=== PATIENT | female | born 1985 | race Caucasian/White ===

== ENCOUNTER 2017-03-04 23:13 | Emergency (ER) | payer BC ==
[2017-03-04] MEDS ORDERED: LORazepam 2 MG/ML SDV IVPUSH ONE (23:18)
[2017-03-04] MEDS ORDERED: Ondansetron 4 MG/2 ML SDV IVPUSH ONE (23:18)
[2017-03-04] MEDS ORDERED: HYDROmorphone 0.5 MG/0.5 ML Syringe IVPUSH ONE (23:18)
--- NOTE | 2017-03-04 23:26 | EDM.PDOC ---
ED HPI GENERAL MEDICAL PROBLEM - General Chief Complaint: Headache Stated Complaint: AMBULANCE Time Seen by Provider: 03/04/17 23:18 Source of Information: Reports: Patient, Family History Limitations: Reports: No Limitations - History of Present Illness INITIAL COMMENTS - FREE TEXT/NARRATIVE: This is a 31-year-old female. Tonight around 9 PM she said she had sudden onset of headache. It seems to be in her temples and in the back of her head and into her neck slightly. The who is a deputy sheriff k9 handler here apparently Center a text message about that time and when he received a text message back it was just gibberish. When he went home he found her on the floor complaining of this pounding headache and she stated that the vision was more like she will looking into a bright light. During this time she had some shaking and at times her limbs seem to be rigid but then she could move them the states she was sort of in and out of being lucid that time she could talk and other times it seemed she couldn't find her words. When she arrived in the ER she was able to answer questions though she was continually jerking in the upper body and her extremities. She states she sees double when she looks at my eyes. He complains of headache pounding in her temples and in the back of her head. She denies any neck tenderness however and she is able to move her neck. She appears to move all 4 extremities on command and there is no airway compromise noted. The patient has no history of headaches and non-that have ever been anything like this one. 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 Apparently the bathroom that she was in when she closed the door to take a shower had the smell of the gas according to the . If you look at the symptoms caused by methane exposure they include headache dizziness or loss of coordination fatigue and emotional upset trouble breathing nausea and unable to move. I believe her symptoms are related to the methane exposure. Headache Pain Score (Numeric/FACES): 10 - Related Data Allergies Allergy/AdvReac Type Severity Reaction Status Date / Time No Known Allergies Allergy Verified 03/04/17 23:22 Home Meds: Home Meds Dextroamphetamine/Amphetamine [Adderall 10 mg Tablet] 10 mg PO ASDIRECTED [History] Hydrocodone/Acetaminophen [Hydrocodon-Acetaminophen 5-325] 1 each PO Q6H PRN # 10 tablet 03/05/17 [Rx] Meclizine [Antivert] 25 mg PO Q6H PRN #10 tablet 03/05/17 [Rx] ED ROS GENERAL - Review of Systems Review Of Systems: See Below Constitutional: Denies: Fever, Chills HEENT: Reports: No Symptoms Respiratory: Denies: Shortness of Breath, Wheezing Cardiovascular: Reports: No Symptoms Endocrine: Reports: No Symptoms GI/Abdominal: Denies: Nausea, Vomiting : Reports: No Symptoms Musculoskeletal: Reports: No Symptoms Skin: Reports: No Symptoms Neurological: Reports: Confusion, Trouble Speaking Psychiatric: Reports: Anxiety, Confusion Hematologic/Lymphatic: Reports: No Symptoms - Physical Exam Exam: See Below Exam Limited By: Altered Mental Status General Appearance: Alert, WD/WN, Moderate Distress Eye Exam: Bilateral Eye: Other Ears: Normal External Exam, Normal Canal, Normal TMs Nose: Normal Inspection Throat/Mouth: Normal Inspection, Normal Oropharynx, No Airway Compromise Head Exam: Normocephalic, Other (No scap tenderness noted by the patient) Neck: Supple, Other (Minimal tenderness noted at the base of the skull but moves without difficulty.) Respiratory/Chest: No Respiratory Distress, Lungs Clear, Normal Breath Sounds Cardiovascular: Regular Rate, Rhythm, No Murmur, Tachycardia GI/Abdominal: Soft, Non-Tender. No: Guarding, Rigid Neuro Exam (Abbreviated): Alert, Oriented, Slow to Respond Back Exam: Normal Inspection Extremities: Normal Inspection, Normal Range of Motion, Other (Patient sits there and kind of jerks a little bit with her upper or lower extremities but when asked to squeeze my hand or to lift her arm she is able to do that without difficulty she can raise her legs without difficulty) Psychiatric: Anxious Skin Exam: Warm, Dry Course - Vital Signs Last Recorded V/S: Last Vital Signs Temp 98.4 F 03/04/17 23:14 Pulse 72 03/04/17 23:14 Resp 15 03/04/17 23:14 BP 112/78 03/04/17 23:14 Pulse Ox 98 03/04/17 23:14 - Orders/Labs/Meds Orders: Active Orders 24 hr Category Date Time Status Head wo Cont [CT] Stat Exams 03/04/17 23:19 Taken Labs: Laboratory Tests 03/04/17 03/04/17 03/04/17 Range/Units 23:10 23:10 23:10 WBC 7.38 (3.98-10.04) K/mm3 RBC 4.14 (3.98-5.22) M/mm3 Hgb 12.9 (11.2-15.7) gm/L Hct 37.5 (34.1-44.9) % MCV 90.6 (79.4-94.8) fl MCH 31.2 (25.6-32.2) pg MCHC 34.4 (32.2-35.5) g/dl RDW Std Deviation 39.6 (36.4-46.3) fL Plt Count 362 (182-369) K/mm3 MPV 9.8 (9.4-12.3) fl Neut % (Auto) 59.5 (34.0-71.1) % Lymph % (Auto) 31.6 (19.3-51.7) % Bay % (Auto) 7.2 (4.7-12.5) % Eos % (Auto) 1.6 (0.7-5.8) Baso % (Auto) 0.1 (0.1-1.2) % Neut # (Auto) 4.39 (1.56-6.13) K/mm3 Lymph # (Auto) 2.33 (1.18-3.74) K/mm3 Bay # (Auto) 0.53 H (0.24-0.36) K/mm3 Eos # (Auto) 0.12 (0.04-0.36) K/mm3 Baso # (Auto) 0.01 (0.01-0.08) K/mm3 Sodium 139 (136-145) mEq/L Potassium 3.7 (3.5-5.1) mEq/L Chloride 106 (98-107) mEq/L Carbon Dioxide 26 (21-32) mEq/L Anion Gap 10.7 (5-15) BUN 13 (7-18) mg/dL Creatinine 0.9 (0.55-1.02) mg/dL Est Cr Clr Drug Dosing 82.13 mL/min Estimated GFR (MDRD) > 60 (>60) mL/min BUN/Creatinine Ratio 14.4 (14-18) Glucose 98 (74-106) mg/dL Calcium 8.8 (8.5-10.1) mg/dL Total Bilirubin 0.5 (0.2-1.0) mg/dL AST 14 L (15-37) U/L ALT 19 (14-59) U/L Alkaline Phosphatase 59 (46-116) U/L Total Protein 6.6 (6.4-8.2) g/dl Albumin 3.8 (3.4-5.0) g/dl Globulin 2.8 gm/dL Albumin/Globulin Ratio 1.4 (1-2) HCG, Qual Negative (NEGATIVE) Urine Color (Yellow) Urine Appearance (Clear) Urine pH (5.0-8.0) Ur Specific [place] (1.005-1.030) Urine Protein (Negative) Urine Glucose (UA) (Negative) Urine Ketones (Negative) Urine Occult Blood (Negative) Urine Nitrite (Negative) Urine Bilirubin (Negative) Urine Urobilinogen (0.2-1.0) Ur Leukocyte Esterase (Negative) Urine RBC (0-5) /hpf Urine WBC (0-5) /hpf Ur Epithelial Cells (0-5) /hpf Urine Bacteria (FEW) /hpf Urine Mucus (FEW) /hpf Urine Opiates Screen (NEGATIVE) Ur Buprenorphine Scrn (NEGATIVE) Ur Oxycodone Screen (NEGATIVE) Urine Methadone Screen (NEGATIVE) Ur Propoxyphene Screen (NEGATIVE) Ur Barbiturates Screen (NEGATIVE) Ur Tricyclics Screen (NEGATIVE) Ur Phencyclidine Scrn (NEGATIVE) Ur Amphetamine Screen (NEGATIVE) U Methamphetamines Scrn (NEGATIVE) U Benzodiazepines Scrn (NEGATIVE) U Cocaine Metab Screen (NEGATIVE) U Marijuana (THC) Screen (NEGATIVE) 03/04/17 03/04/17 Range/Units 23:19 23:35 WBC (3.98-10.04) K/mm3 RBC (3.98-5.22) M/mm3 Hgb (11.2-15.7) gm/L Hct (34.1-44.9) % MCV (79.4-94.8) fl MCH (25.6-32.2) pg MCHC (32.2-35.5) g/dl RDW Std Deviation (36.4-46.3) fL Plt Count (182-369) K/mm3 MPV (9.4-12.3) fl Neut % (Auto) (34.0-71.1) % Lymph % (Auto) (19.3-51.7) % Bay % (Auto) (4.7-12.5) % Eos % (Auto) (0.7-5.8) Baso % (Auto) (0.1-1.2) % Neut # (Auto) (1.56-6.13) K/mm3 Lymph # (Auto) (1.18-3.74) K/mm3 Bay # (Auto) (0.24-0.36) K/mm3 Eos # (Auto) (0.04-0.36) K/mm3 Baso # (Auto) (0.01-0.08) K/mm3 Sodium (136-145) mEq/L Potassium (3.5-5.1) mEq/L Chloride (98-107) mEq/L Carbon Dioxide (21-32) mEq/L Anion Gap (5-15) BUN (7-18) mg/dL Creatinine (0.55-1.02) mg/dL Est Cr Clr Drug Dosing mL/min Estimated GFR (MDRD) (>60) mL/min BUN/Creatinine Ratio (14-18) Glucose (74-106) mg/dL Calcium (8.5-10.1) mg/dL Total Bilirubin (0.2-1.0) mg/dL AST (15-37) U/L ALT (14-59) U/L Alkaline Phosphatase (46-116) U/L Total Protein (6.4-8.2) g/dl Albumin (3.4-5.0) g/dl Globulin gm/dL Albumin/Globulin Ratio (1-2) HCG, Qual (NEGATIVE) Urine Color Yellow (Yellow) Urine Appearance Slt cloudy H (Clear) Urine pH 8.5 H (5.0-8.0) Ur Specific [place] 1.015 (1.005-1.030) Urine Protein 1+ H (Negative) Urine Glucose (UA) Negative (Negative) Urine Ketones Negative (Negative) Urine Occult Blood Negative (Negative) Urine Nitrite Negative (Negative) Urine Bilirubin Negative (Negative) Urine Urobilinogen 1.0 (0.2-1.0) Ur Leukocyte Esterase Negative (Negative) Urine RBC 0-5 (0-5) /hpf Urine WBC 0-5 (0-5) /hpf Ur Epithelial Cells 0-5 (0-5) /hpf Urine Bacteria Few (FEW) /hpf Urine Mucus Few (FEW) /hpf Urine Opiates Screen Negative (NEGATIVE) Ur Buprenorphine Scrn Negative (NEGATIVE) Ur Oxycodone Screen Negative (NEGATIVE) Urine Methadone Screen Negative (NEGATIVE) Ur Propoxyphene Screen Negative (NEGATIVE) Ur Barbiturates Screen Negative (NEGATIVE) Ur Tricyclics Screen Negative (NEGATIVE) Ur Phencyclidine Scrn Negative (NEGATIVE) Ur Amphetamine Screen Negative (NEGATIVE) U Methamphetamines Scrn Negative (NEGATIVE) U Benzodiazepines Scrn Negative (NEGATIVE) U Cocaine Metab Screen Negative (NEGATIVE) U Marijuana (THC) Screen Negative (NEGATIVE) Meds: Medications Discontinued Medications Generic Name Dose Route Start Last Admin Trade Name Freq PRN Reason Stop Dose Admin Hydromorphone HCl 0.5 mg 03/04/17 23:18 03/04/17 23:38 Dilaudid IVPUSH 03/04/17 23:19 0.5 mg STAT ONE Administration Hydromorphone HCl 0.5 mg 03/05/17 00:20 03/05/17 00:25 Dilaudid IVPUSH 03/05/17 00:21 0.5 mg NOW ONE Administration Lorazepam 0.5 mg 03/04/17 23:18 03/04/17 23:38 Ativan IVPUSH 03/04/17 23:19 0.5 mg ONETIME ONE Administration Ondansetron HCl 4 mg 03/04/17 23:18 03/04/17 23:38 Zofran IVPUSH 03/04/17 23:19 4 mg ONETIME ONE Administration - Radiology Interpretation Free Text/Narrative:: CT scan of the head was completely normal - Re-Assessments/Exams Free Text/Narrative Re-Assessment/Exam: 03/05/17 02:01 Now that the patient has gotten medications she is calm she is coherent she still complains of some mild vertigo and a mild headache but she is markedly better. I advised her and her that she is not to be exposed to methane gas for at least 48 hours. I also advised them that neither of them other children need to be around this methane gas. 03/05/17 02:02 All her blood work CBC CMP urinalysis and urine drug screen were all normal Departure - Departure Time of Disposition: 02:02 Disposition: Home, Self-Care 01 Condition: Good Clinical Impression: Vertigo, Loss of coordination Toxic effect of gas exposure Qualifiers: Encounter type: initial encounter Injury intent: accidental or unintentional Qualified Code(s): T59.91XA - Toxic effect of unspecified gases, fumes and vapors, accidental (unintentional), initial encounter Headache Qualifiers: Headache type: unspecified Headache chronicity pattern: acute headache Intractability: not intractable Qualified Code(s): R51 - Headache - Discharge Information Prescriptions: Hydrocodone/Acetaminophen [Hydrocodon-Acetaminophen 5-325] 1 each PO Q6H PRN # 10 tablet PRN Reason: Headache Meclizine [Antivert] 25 mg PO Q6H PRN #10 tablet PRN Reason: Dizziness Referrals: Alexei Navas MD [Primary Care Provider] - Forms: ED Department Discharge Additional Instructions: Stay out of any methane gas or sore smell for the next 48 hours, I would caution all review and the family not to be at the farm house until this sore smell is resolved, take the medicine for pain and vertigo as needed, follow up with your family doctor this week for recheck, return to the ER if needed - My Orders Last 24 Hours: My Active Orders 03/04/17 23:19 Head wo Cont [CT] Stat - Assessment/Plan Last 24 Hours: My Active Orders 03/04/17 23:19 Head wo Cont [CT] Stat
[2017-03-05] MEDS ORDERED: HYDROmorphone 0.5 MG/0.5 ML Syringe IVPUSH ONE (00:20)
--- NOTE | 2017-03-05 17:27 | CT ---
Head CT Technique: Multiple axial sections through the brain were obtained. Intravenous contrast was not utilized. Comparison: No previous intracranial imaging. Findings: Ventricles along with basal cisterns and sulci over the convexities are within normal limits for the patient's age. No abnormal parenchymal densities are seen. No evidence of intracranial hemorrhage. No midline shift or mass effect is seen. Bone window settings were reviewed which show no acute calvarial abnormality. Visualized sinuses are clear. Impression: 1. Nothing acute is identified on noncontrast head CT study. Diagnostic code #1 Agree with preliminary report issued by [facility] ([facility] preliminary report dictated on 03/05/17, 12:44 AM Central Time)
== END 2017-03-05 02:15 | disposition home or self-care (01) ==
LOC: JD.ED 23:13
DX: T59.91XA Toxic effect of unspecified gases, fumes and vapors, accidental (unintentional), initial encounter (principal); R27.8 Other lack of coordination; R51 Headache
CPT/HCPCS: 36415; 70450; 80053; 80306; 81001; 84703; 85025; 96374; 96375; 96376; 99285; J1170; J2060; J2405; P9612; 99284